=== PATIENT | female | born 1945 | race Caucasian/White ===

== ENCOUNTER 2016-11-16 15:11 | Inpatient (IN) | payer MEDICARE, OTHER ==
--- NOTE | ~2016-11-16 | DS ---
Discharge Summary [facility] [address] [place]. [address] NAME: ZONIA VIGIL : 49 STATUS : DIS IN PAT#: [id number] AGE: 71 ADM/REG DATE : 11/16/16 MR#: [id number] REPORT SERV DATE: 12/04/16 DICTATED BY: VIV HENDRICKS DATE: 12/04/16 REPORT STATUS : Draft TRANSCRIBED BY: ANJU DATE: 12/04/16 Data Collection from hospitalization DISCHARGE DIAGNOSES: 1. Acute systolic congestive heart failure. 2. Persistent atrial fibrillation, status post transesophageal echocardiogram/DC cardioversion 11/22/2016. 3. Acute kidney injury. 4. Hypotension. 5. Abnormal overnight pulse oximetry-suspect obstructive sleep apnea. 6. Hypertension. 7. History of seasonal rhinitis. CONSULTATIONS: Jose Lynn M.D. PROCEDURES: 1. Cardiac catheterization, 11/19/2016. 2. Transesophageal echocardiogram guided cardioversion, 11/22/2016. 3. Overnight oximetry study, 11/24/2016. 4. Cardioversion, 11/26/2016. DISCHARGE MEDICATIONS: Tylenol 650 mg at bedtime as needed, Cordarone 200 mg twice a day, Eliquis 5 mg twice a day, Bumex as instructed, Coreg 3.125 mg twice a day, Zyrtec 10 mg every evening, vitamin D 2000 units daily, Flonase nasal spray one spray nasally daily as needed, Centrum one tablet daily, K-Dur 20 mEq as instructed. CONDITION ON DISCHARGE: Stable. DISPOSITION: The patient was discharged home on a low-sodium, low-cholesterol, cardiac diet with activities as instructed. She would follow up with me on 12/06/2016. She would follow up with Dr. Bobby Fonseca 1 week following discharge. She would follow up at [facility] as instructed. HOSPITAL COURSE: This is a 71-year-old female who has no previous cardiovascular history. She reports that she was in her usual state of health until mid August 2016. She had the abrupt onset of upper respiratory tract infection symptoms including sore throat, rhinorrhea, wheezing, and shortness of breath. The patient was diagnosed with bronchitis and apparently treated with antimicrobial therapy. Her symptoms initially improved after 1- 2 weeks, however, shortly thereafter she developed the insidious onset of dyspnea and fatigue. Her symptoms were originally mild although more recently they had become very severe. Over the past week in particular the patient has had significant weight gain, orthopnea, lower extremity edema, and exertional dyspnea. She denied any palpitations aside from an occasional feeling of irregular heartbeat. She denied any chest pain. She was admitted to the hospital at this time for further evaluation and treatment. Upon admission, her INR level was 1.2. Creatinine level was 1.19. Troponin-I was 0.07. The patient has newly diagnosed atrial fibrillation and was started on IV Cardizem drip which was effective in reducing the heart rate. She would be diuresed. We would transition Discharge Summary [address] [place]. [address] NAME: ZONIA VIGIL : 49 STATUS : DIS IN PAT#: [id number] AGE: 71 ADM/REG DATE : 11/16/16 MR#: [id number] REPORT SERV DATE: 12/04/16 DICTATED BY: VIV HENDRICKS DATE: 12/04/16 REPORT STATUS : Draft TRANSCRIBED BY: ANJU DATE: 12/04/16 to beta-ciara therapy when the patient was euvolemic and titrate Cardizem off. The patient does have acute congestive heart failure. The patient's LV systolic function was unknown although her x-ray was suggestive of cardiomyopathy. Transthoracic echocardiogram would be obtained as soon as possible. The patient was going to be started on IV Lasix. We would continue therapy with an angiotensin-receptor ciara though we would discontinue hydrochlorothiazide in preference of a loop diuretic plus or minus at that time. We were going to check TSH and free T4. She would be evaluated for obstructive sleep apnea. When she was euvolemic, a nocturnal pulse oximetry study would be obtained. She was started on IV heparin drip for stroke prophylaxis. She was placed in the Cardiac Telemetry Unit. The following day, an echocardiogram was performed. She was feeling improved. Her shortness of breath and lower extremity edema was improving. Echocardiogram showed left ventricular ejection fraction of 30-35%. Moderate mitral regurgitation and moderate to severe left atrial enlargement. Telemetry revealed atrial fibrillation with heart rate 90-100 beats per minute. IV Lasix continued. It was felt that she would need to undergo a cardiac catheterization. If this was negative, we would plan on DC cardioversion. TSH level was normal. On the , she felt improved. Her cough and dyspnea were better. There was some decrease in the lower extremity edema. Lasix was increased. Potassium supplementation was given. On 11/19/2016, she had no chest pain. She could lie flat. Dyspnea and cough continued to improve with diuresis. She had no palpitations. She remained in atrial fibrillation. She was taken to the [facility] where she underwent the above-mentioned procedure by Dr. Leobardo Salazar. She tolerated this well. There were no complications. She does have nonobstructive coronary artery disease. Following day, she did have a worsening cough that was productive of clear sputum. She was changed from Lasix to Bumex. Carvedilol was increased for improved rate control. On 11/21/2016, she had brisk diuresis overnight. She did have some cramping. The patient does have acute systolic congestive heart failure- nonischemic. Bumex diuresis continued. Plans were being made for DC cardioversion/transesophageal echocardiogram to be performed. Carvedilol and Eliquis were continued. On the , the patient underwent transesophageal echocardiogram-guided cardioversion. This was a successful transesophageal echocardiogram-guided cardioversion from atrial fibrillation to normal sinus rhythm. The patient underwent an overnight oximetry study. Dr. Jose Lynn interpreted this study as being abnormal while on room air. He recommended consideration of oxygen titration study or sleep study and clinical correlation was recommended. The next day, the patient did complain of symptomatic hypotension. She continued to diurese. Telemetry revealed atrial fibrillation with heart rate in the 100-110 beats per minute range. Her lower extremity edema was resolving and was 1+. Carvedilol was decreased as well as losartan. The patient has failed DC cardioversion. Coumadin was continued. Consideration would be given for repeat DC cardioversion. Eliquis was continued. Coreg was decreased as well as losartan. On 11/24/2016, atrial fibrillation persisted. She had no edema. The next day, she did have some hypotension. She remained in atrial fibrillation. Plans were being made for repeat DC cardioversion. On 11/26/2016, the patient underwent successful cardioversion to a sinus rhythm by Dr. Ng. She had no chest pain or shortness of breath. She was alert and cooperative. She had no focal deficits. Discharge instructions were given. Due to her improved and stable condition, she was discharged home with the above-stated instructions. Information collected by: Ammy Martinez Discharge Summary [place] [address] [place] [address] NAME: ZONIA VIGIL : 49 STATUS : DIS IN PAT#: [id number] AGE: 71 ADM/REG DATE : 11/16/16 MR#: [id number] REPORT SERV DATE: 12/04/16 DICTATED BY: VIV HENDRICKS DATE: 12/04/16 REPORT STATUS : Draft TRANSCRIBED BY: ANJU DATE: 12/04/16 I submit the above information as my discharge summary. TG/ANJU Viv Hendricks MD / [id number] CC: MD Bobby Bone MD
--- NOTE | ~2016-11-16 | HP ---
History And Physical [place] [id number] [place]. [address] NAME: ZONIA VIGIL : 49 STATUS : ADM IN [facility]#: [id number] AGE: 71 ADM/REG DATE : 11/16/16 MR#: [id number] REPORT SERV DATE: 11/16/16 DICTATED BY: VIV HENDRICKS DATE: 11/16/16 REPORT STATUS : Draft TRANSCRIBED BY: MODJunito DATE: 11/16/16 DATE OF ADMISSION: 11/16/2016 CARDIOLOGY ADMISSION HISTORY AND PHYSICAL. IDENTIFYING DATA: The patient is a 71-year-old woman with no previous cardiovascular history. CHIEF COMPLAINT: Extreme fatigue and dyspnea of insidious onset approximately 2 to 3 months ago. HISTORY OF PRESENT ILLNESS: Ms. Vigil is a 71-year-old woman with no previous cardiovascular history. She reports that she was in her usual state of health until mid August 2016. The patient had the abrupt onset of upper respiratory tract infection symptoms including sore throat, rhinorrhea, wheezing, and shortness of breath. The patient was diagnosed with bronchitis, and apparently treated with antimicrobial therapy. Her symptoms initially improved after 1 to 2 weeks. However, the patient shortly thereafter developed insidious onset of dyspnea and fatigue. Her symptoms were originally mild, though more recently they have become very severe. Over the last week in particular, the patient has had significant weight gain, orthopnea, lower extremity edema, and exertional dyspnea. She denies palpitations, aside from occasional feeling of irregular heartbeat. She denies chest pain. PAST MEDICAL HISTORY: 1. Hypertension. 2. Seasonal rhinitis. SURGICAL HISTORY: The patient has had a previous cholecystectomy and appendectomy. Surgical history is otherwise negative. FAMILY HISTORY: The patient reports that her brother has been diagnosed with atrial fibrillation. Her mother has been diagnosed with aortic valve stenosis. The patient denies any significant family history of early coronary heart disease or sudden cardiac . SOCIAL HISTORY: The patient has no significant history of tobacco, alcohol, or drug use. ALLERGIES: THE PATIENT HAS NO KNOWN MEDICATION ALLERGIES, THOUGH SHE DOES REPORT SIGNIFICANT SEASONAL ALLERGIES. HOME MEDICATIONS: 1. Acetaminophen 650 mg p.o. at bedtime as needed. 2. Norvasc 10 mg p.o. at bedtime. 3. Aspirin 81 mg p.o. daily. 4. Cetirizine 10 mg p.o. at bedtime. 5. Cholecalciferol 2000 units p.o. daily. 6. Flonase nasal spray, 1 spray to each nostril daily as needed. History And Physical [address] [place]. [address] NAME: ZONIA VIGIL : 49 STATUS : ADM IN [facility]#: [id number] AGE: 71 ADM/REG DATE : 11/16/16 MR#: [id number] REPORT SERV DATE: 11/16/16 DICTATED BY: VIV HENDRICKS DATE: 11/16/16 REPORT STATUS : Draft TRANSCRIBED BY: ANJU DATE: 11/16/16 7. Multivitamin one tablet daily. 8. Avalide 300/12.5 mg one tablet daily. REVIEW OF SYSTEMS: A complete 12-system review was performed. This is noncontributory except for the pertinent positives and negatives noted in the history of present illness above. PHYSICAL EXAMINATION: VITAL SIGNS: Temperature is 98.6 degrees Fahrenheit, blood pressure is currently 116/83 mmHg, heart rate is currently 90 beats per minute and irregular, though the patient's heart rate was 162 beats per minute on admission, respirations 19, oxygen saturation is 94% on a 2 L nasal cannula. GENERAL: Constitutional: The patient is a morbidly obese, older white woman who is in no acute distress. The patient is able to speak in full sentences. EYES: PERRL, EOMI, clear conjunctiva. HEAD/MNT: NCAT with moist mucous membranes and grossly normal hard and soft palate. NECK: Supple with no obvious thyromegaly or lymphadenopathy CARDIOVASCULAR: There is an irregularly irregular rhythm with a variable S1 and a widely split second heart sound. The jugular venous pressure appears grossly elevated to greater than 14 cm. No significant murmurs or rubs are noted. PULMONARY: There are scattered rales noted in the lung bases bilaterally. The lungs are otherwise clear to auscultation bilaterally with no wheezing or rhonchi noted. ABDOMINAL: Soft, non-tender, non-distended with no hepatosplenomegaly noted. EXTREMITIES: There is 1 to 2+ pitting edema below the knees with mild changes of venous stasis. MUSCULOSKELETAL: Grossly normal strength and range of motion in all extremities INTEGUMENTARY: Skin appears intact with no bruises, wounds or active lesions noted NEURO/PSYC: Alert and oriented x3, with no dysarthria, facial droop or lateralizing weakness noted. DIAGNOSTIC DATA: 12-lead EKG: The 12-lead EKG shows atrial fibrillation with rapid ventricular response and a ventricular rate of 160 beats per minute. There is a right bundle-branch block pattern with secondary ST/T-wave abnormalities. Chest x-ray: The chest x-ray is an AP film, which suggest mild pulmonary edema. The film is suggestive of, but not diagnostic for cardiomegaly. There is no other acute cardiopulmonary process noted, though a small amount of aortic calcification cannot be ruled out. LABORATORY DATA: Cell count show a white blood cell count of 5.2, hemoglobin 14.5, hematocrit 43, platelets 159, INR is 1.2. PTT is 35. Electrolytes show a sodium of 143, potassium 3.5, chloride is 106, CO2 29, BUN 18, creatinine is 1.19, glucose 148, magnesium 1.7. Troponin I is 0.07. Thyroid function studies and B-type natriuretic peptide are pending at this time. ASSESSMENT AND PLAN: 1. Newly diagnosed atrial fibrillation: The patient has been started on IV Cardizem drip, which has been effective in reducing her heart rate. The patient will be diuresed as History And Physical [address] [address] NAME: ZONIA VIGIL : 49 STATUS : ADM IN [facility]#: [id number] AGE: 71 ADM/REG DATE : 11/16/16 MR#: [id number] REPORT SERV DATE: 11/16/16 DICTATED BY: VIV HENDRICKS DATE: 11/16/16 REPORT STATUS : Draft TRANSCRIBED BY: MODJunito DATE: 11/16/16 outlined below. We will transition to beta-ciara therapy when the patient is euvolemic, and titrate Cardizem to off. We will consider discontinue cardioversion depending on the results of the patient's remaining workup. 2. Acute congestive heart failure not otherwise specified: The patient's LV systolic function is unknown, though her x-ray is suggestive of a cardiomyopathy. A transthoracic echocardiogram will be obtained as soon as possible. The patient will be started on Lasix 40 mg IV twice daily as tolerated. We will continue therapy with an angiotensin receptor ciara, though we will discontinue hydrochlorothiazide and preference for a loop diuretic plus or minus Aldactone. 3. For thyroid disorders: We will send a TSH and free T4. 4. Evaluate for obstructive sleep apnea: When the patient is euvolemic, a nocturnal pulse oximetry study will be obtained. Further recommendations pending the results of the patient's echocardiogram. The patient will be started on IV heparin drip for stroke prophylaxis. She will be admitted to Cardiac telemetry Unit. ARIN/ANJU Viv Hendricks MD / [id number] CC: MD Bobby Bone MD
--- NOTE | ~2016-11-16 | PUL ---
[place] [address] [place]. [address] NAME: ZONIA VIGIL : 49 STATUS : DIS IN PAT#: [id number] AGE: 71 ADM/REG DATE : 11/16/16 MR#: [id number] REPORT SERV DATE: 11/27/16 DICTATED BY: JOSE LYNN DATE: 11/24/16 REPORT STATUS : Draft TRANSCRIBED BY: ANJU DATE: 11/24/16 REFERRING PHYSICIAN: Overnight oximetry was performed on room air. Total valid sampling time was 6 hours, 10 minutes and 38 seconds. Saturations were less than 88% for 2 hours 59 minutes. INTERPRETATION: Abnormal oximetry test while on room air. Consider oxygen titration study or sleep study. Clinical correlation is recommended. AISHA/ANJU Jose Lynn M.D. / [id number] CC: MD Bobby Bone MD
--- NOTE | ~2016-11-16 | OP ---
Record Of Operation [facility] [address] [place]. [address] NAME: ZONIA VIGIL : 49 STATUS : DIS IN PAT#: [id number] AGE: 71 ADM/REG DATE : 11/16/16 MR#: [id number] REPORT SERV DATE: 11/26/16 DICTATED BY: WICHO MULLINS DATE: 11/26/16 REPORT STATUS : Draft TRANSCRIBED BY: MODL DATE: 11/26/16 DATE OF PROCEDURE: 11/26/2016 CARDIOVERSION REPORT INDICATIONS: This is a 71-year-old female with recurrent atrial fibrillation and rapid ventricular response. SUMMARY OF THE REPORT: Cardioversion only was performed, please see the NOEMI and cardioversion report from the 11/22/2016 where no left atrial appendage thrombus was identified. The patient has been on therapeutic anticoagulation with Eliquis. Informed consent was obtained signed on the chart prior to proceeding. A time-out was performed and sedation was per Anesthesia. After adequate sedation, a single synchronized 200 joule biphasic energy shock was delivered with successful cardioversion to sinus rhythm. COMPLICATIONS: None. CONCLUSION: Successful cardioversion to sinus rhythm. SITA/ANJU Wicho Mullins M.D. / [id number] CC: MD Bobby Bone MD
--- NOTE | ~2016-11-16 | OP ---
Record Of Operation [facility] [address] [place]. [address] NAME: ZONIA VIGIL : 49 STATUS : ADM IN PAT#: [id number] AGE: 71 ADM/REG DATE : 11/16/16 MR#: [id number] REPORT SERV DATE: 11/22/16 DICTATED BY: NOEMY ROBERTO DATE: 11/22/16 REPORT STATUS : Draft TRANSCRIBED BY: ANJU DATE: 11/22/16 DATE OF PROCEDURE: NOEMI-GUIDED CARDIOVERSION This is a 71-year-old female with cardiomyopathy, congestive heart failure and atrial fibrillation of unknown duration. She has been few days ago started on Eliquis. I have been asked to do a NOEMI-guided cardioversion. The risks and benefits explained to the patient and she agreed to proceed. The patient was sedated with propofol per Anesthesia. Vital signs were closely monitored and remained stable. FINDINGS: 1. No evidence of left atrial or left atrial appendage thrombus. 2. 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 It is very proximal on the septum and it is possible ASD primum. No previous study available for comparison. 3. Mild to moderate RV enlargement with severe decrease in systolic function. Estimated ejection fraction of 30%. 4. Mild RV enlargement with decreased systolic function. 5. Mitral valve opens adequately. There is some moderate mitral valve regurgitation with central jet. 6. Tricuspid valve opens adequately. There is a mild tricuspid valve regurgitation. 7. Aortic valve is tricuspid without significant regurgitation. 8. Grossly normal pulmonic valve. 9. A 200 joules of synchronized cardioversion was delivered. It has not restored sinus rhythm, thus another shock of synchronized cardioversion with 300 joules synchronized cardioversion. This time restored normal sinus rhythm. The patient recovered well. CONCLUSION: Successful NOEMI-guided cardioversion from atrial fibrillation to normal sinus rhythm. GERSON/ANJU Noemy Roberto M.D. / [id number] CC: MD Bobby Bone MD
[2016-11-16 14:12] LABS: BASOPHILS 0.8 %; BASOPHILS ABSOLUTE 0.04 10/3/uL (0.0-0.16); EOSINOPHILS 0.6 %; EOSINOPHILS ABSOLUTE 0.03 10/3/uL (0.0-0.53); ER CBC TAT 0 Hrs 03 MinsN; HEMATOCRIT 43.2 % (36.0-48.0); HEMOGLOBIN 14.5 g/dL (12.0-16.0); IMMATURE GRANULOCYTES 0.2 %; IMMATURE GRANULOCYTES ABSOLUTE 0.01 10/3/uL (0.0-0.11); LYMPHOCYTES 16.8 %; LYMPHOCYTES ABSOLUTE 0.88 10/3/uL (0.67-4.30); MANUAL DIFF NO %; MEAN CORPUS HGB CONC 33.6 g/dL (32.0-36.0); MEAN CORPUSCULAR HEMOGLOB 31.1 pg (26.0-34.0); MEAN CORPUSCULAR VOLUME 92.7 fL (80-100); MEAN PLATELET VOLUME 11.8 fL (9.2-13.0); MONOCYTES 7.4 %; MONOCYTES ABSOLUTE 0.39 10/3/uL (0.21-1.20); NEUTROPHILS 74.2 %; NEUTROPHILS ABSOLUTE 3.89 10/3/uL (2.02-8.40); PLATELET COUNT 159 10/3/uL (150-400); RBC DISTRIBUTION WIDTH 14.6 % (12.0-16.0); RED CELL COUNT 4.66 10/6/uL (4.0-5.6); WHITE BLOOD CELLS 5.2 10/3/uL (4.5-10.5)
[2016-11-16 14:19] LABS: INTERNATIONAL NORMAL RATI 1.2 UNITS (-); PARTIAL THROMBO TIME 35.3 SEC (22.5-37.2)
[2016-11-16 14:38] LABS: CALCIUM, SERUM 8.7 MG/DL (8.5-10.4); CHLORIDE, SERUM 106 MMOL/L (96-112); CO2 (CARBON DIOXIDE) 29 MMOL/L (24-34); CREATININE 1.19 MG/DL (0.55-1.02); GFR AFRICAN AMERICAN 54 ML/MIN (>=60); GFR NON AFRICAN AMERICAN 47 ML/MIN (>=60); POTASSIUM, SERUM 3.5 MMOL/L (3.5-5.3); SODIUM, SERUM 143 MMOL/L (135-148)
[2016-11-16 14:41] LABS: BUN (BLOOD UREA NITROGEN) 18 MG/DL (6-23); GLUCOSE, SERUM 148 MG/DL (60-99)
[2016-11-16 14:43] LABS: CHEST PAIN PROFILE TAT 0 Hrs 34 Mins; TROPONIN I 0.07 NG/ML (<0.05)
[~2016-11-16 15:11] MED LIST: ASAB PO; AVALIDE PO; CENTRUM PO; FLONASE NAS; NORV10 PO; T PO; VITAMIN D2000 UNIT PO; ZYRTEC ALLGY10 MG PO
[2016-11-16 23:23] LABS: ALBUMIN 3.4 G/DL (3.5-5.0); DIRECT BILIRUBIN 0.3 MG/DL (0.0-0.4); FREE T4 1.48 NG/DL (0.76-1.46); INDIRECT BILIRUBIN(NOT ORDER) 1.1 MG/DL (0.1-0.9); TOTAL BILIRUBIN 1.4 MG/DL (0-1.2); TOTAL PROTEIN 6.7 G/DL (6.0-8.5); ULTRASENSITIVE TSH 2.94 MCIU/ML (0.358-3.740)
[2016-11-16 23:24] LABS: TROPONIN I 0.09 NG/ML (<0.05)
[2016-11-17 06:28] LABS: BASOPHILS 0.7 %; BASOPHILS ABSOLUTE 0.04 10/3/uL (0.0-0.16); EOSINOPHILS ABSOLUTE 0.11 10/3/uL (0.0-0.53); HEMATOCRIT 42.5 % (36.0-48.0); HEMOGLOBIN 14.1 g/dL (12.0-16.0); IMMATURE GRANULOCYTES 0.2 %; IMMATURE GRANULOCYTES ABSOLUTE 0.01 10/3/uL (0.0-0.11); LYMPHOCYTES 20.6 %; LYMPHOCYTES ABSOLUTE 1.16 10/3/uL (0.67-4.30); MANUAL DIFF NO %; MEAN CORPUS HGB CONC 33.2 g/dL (32.0-36.0); MEAN CORPUSCULAR VOLUME 93.4 fL (80-100); MEAN PLATELET VOLUME 12.3 fL (9.2-13.0); MONOCYTES 9.1 %; MONOCYTES ABSOLUTE 0.51 10/3/uL (0.21-1.20); NEUTROPHILS 67.4 %; PLATELET COUNT 154 10/3/uL (150-400); RBC DISTRIBUTION WIDTH 14.8 % (12.0-16.0); RED CELL COUNT 4.55 10/6/uL (4.0-5.6); WHITE BLOOD CELLS 5.6 10/3/uL (4.5-10.5)
[2016-11-17 06:33] LABS: PARTIAL THROMBO TIME 102.2 SEC (22.5-37.2)
[2016-11-17 06:35] LABS: BUN (BLOOD UREA NITROGEN) 18 MG/DL (6-23); CALCIUM, SERUM 8.7 MG/DL (8.5-10.4); CHLORIDE, SERUM 106 MMOL/L (96-112); CO2 (CARBON DIOXIDE) 27 MMOL/L (24-34); CREATININE 0.92 MG/DL (0.55-1.02); GFR AFRICAN AMERICAN 74 ML/MIN (>=60); GFR NON AFRICAN AMERICAN 64 ML/MIN (>=60); POTASSIUM, SERUM 3.3 MMOL/L (3.5-5.3); SODIUM, SERUM 143 MMOL/L (135-148)
[2016-11-17 06:36] LABS: GLUCOSE, SERUM 108 MG/DL (60-99)
[2016-11-18 05:44] LABS: BASOPHILS 0.8 %; BASOPHILS ABSOLUTE 0.04 10/3/uL (0.0-0.16); EOSINOPHILS 3.9 %; HEMATOCRIT 39.9 % (36.0-48.0); HEMOGLOBIN 13.2 g/dL (12.0-16.0); IMMATURE GRANULOCYTES 0.2 %; IMMATURE GRANULOCYTES ABSOLUTE 0.01 10/3/uL (0.0-0.11); LYMPHOCYTES 27.8 %; LYMPHOCYTES ABSOLUTE 1.41 10/3/uL (0.67-4.30); MEAN CORPUS HGB CONC 33.1 g/dL (32.0-36.0); MEAN CORPUSCULAR HEMOGLOB 30.9 pg (26.0-34.0); MEAN CORPUSCULAR VOLUME 93.4 fL (80-100); MEAN PLATELET VOLUME 12.4 fL (9.2-13.0); MONOCYTES 12.2 %; MONOCYTES ABSOLUTE 0.62 10/3/uL (0.21-1.20); NEUTROPHILS 55.1 %; PLATELET COUNT 153 10/3/uL (150-400); RBC DISTRIBUTION WIDTH 14.9 % (12.0-16.0); RED CELL COUNT 4.27 10/6/uL (4.0-5.6); WHITE BLOOD CELLS 5.1 10/3/uL (4.5-10.5)
[2016-11-18 05:45] LABS: MANUAL DIFF NO %
[2016-11-18 05:54] LABS: BUN (BLOOD UREA NITROGEN) 21 MG/DL (6-23); CALCIUM, SERUM 8.3 MG/DL (8.5-10.4); CHLORIDE, SERUM 103 MMOL/L (96-112); CO2 (CARBON DIOXIDE) 29 MMOL/L (24-34); CREATININE 0.93 MG/DL (0.55-1.02); GFR AFRICAN AMERICAN 73 ML/MIN (>=60); GFR NON AFRICAN AMERICAN 63 ML/MIN (>=60); GLUCOSE, SERUM 106 MG/DL (60-99); POTASSIUM, SERUM 3.3 MMOL/L (3.5-5.3); SODIUM, SERUM 142 MMOL/L (135-148)
[2016-11-19 06:50] LABS: BASOPHILS 0.6 %; BASOPHILS ABSOLUTE 0.03 10/3/uL (0.0-0.16); EOSINOPHILS 3.4 %; EOSINOPHILS ABSOLUTE 0.17 10/3/uL (0.0-0.53); HEMATOCRIT 41.3 % (36.0-48.0); HEMOGLOBIN 13.2 g/dL (12.0-16.0); IMMATURE GRANULOCYTES 0.2 %; IMMATURE GRANULOCYTES ABSOLUTE 0.01 10/3/uL (0.0-0.11); LYMPHOCYTES 25.5 %; LYMPHOCYTES ABSOLUTE 1.28 10/3/uL (0.67-4.30); MEAN CORPUSCULAR HEMOGLOB 29.6 pg (26.0-34.0); MEAN CORPUSCULAR VOLUME 92.6 fL (80-100); MEAN PLATELET VOLUME 12.6 fL (9.2-13.0); MONOCYTES 9.2 %; MONOCYTES ABSOLUTE 0.46 10/3/uL (0.21-1.20); NEUTROPHILS 61.1 %; NEUTROPHILS ABSOLUTE 3.07 10/3/uL (2.02-8.40); PLATELET COUNT 144 10/3/uL (150-400); RED CELL COUNT 4.46 10/6/uL (4.0-5.6)
[2016-11-19 06:54] LABS: INTERNATIONAL NORMAL RATI 1.2 UNITS (-); PROTIME (NOT ORD) 15.2 SEC (12.0-14.5)
[2016-11-19 06:56] LABS: MANUAL DIFF NO %
[2016-11-19 06:58] LABS: PARTIAL THROMBO TIME 134.8 SEC (22.5-37.2)
[2016-11-19 07:00] LABS: BUN (BLOOD UREA NITROGEN) 20 MG/DL (6-23); CHLORIDE, SERUM 105 MMOL/L (96-112); CHOL/HDL RATIO(NOT ORDER) 2.1 (0-5); CHOLESTEROL 137 MG/DL (< 200); CO2 (CARBON DIOXIDE) 27 MMOL/L (24-34); CREATININE 0.92 MG/DL (0.55-1.02); GFR AFRICAN AMERICAN 74 ML/MIN (>=60); GFR NON AFRICAN AMERICAN 64 ML/MIN (>=60); GLUCOSE, SERUM 105 MG/DL (60-99); HDL CHOLESTEROL 64 MG/DL (> 49); LDL CHOLESTEROL 61 MG/DL (< 130); NON-HDL CHOLESTEROL 73 MG/DL (< 160); POTASSIUM, SERUM 3.8 MMOL/L (3.5-5.3); SODIUM, SERUM 142 MMOL/L (135-148); TRIGLYCERIDE 62 MG/DL (< 150)
[2016-11-20 05:21] LABS: BASOPHILS 0.4 %; BASOPHILS ABSOLUTE 0.02 10/3/uL (0.0-0.16); EOSINOPHILS 2.3 %; EOSINOPHILS ABSOLUTE 0.12 10/3/uL (0.0-0.53); HEMATOCRIT 41.2 % (36.0-48.0); HEMOGLOBIN 13.5 g/dL (12.0-16.0); IMMATURE GRANULOCYTES 0.2 %; IMMATURE GRANULOCYTES ABSOLUTE 0.01 10/3/uL (0.0-0.11); LYMPHOCYTES 20.6 %; LYMPHOCYTES ABSOLUTE 1.08 10/3/uL (0.67-4.30); MANUAL DIFF NO %; MEAN CORPUS HGB CONC 32.8 g/dL (32.0-36.0); MEAN CORPUSCULAR HEMOGLOB 30.8 pg (26.0-34.0); MEAN CORPUSCULAR VOLUME 94.1 fL (80-100); MEAN PLATELET VOLUME 12.7 fL (9.2-13.0); MONOCYTES 10.1 %; MONOCYTES ABSOLUTE 0.53 10/3/uL (0.21-1.20); NEUTROPHILS 66.4 %; NEUTROPHILS ABSOLUTE 3.49 10/3/uL (2.02-8.40); PLATELET COUNT 150 10/3/uL (150-400); RBC DISTRIBUTION WIDTH 14.6 % (12.0-16.0); RED CELL COUNT 4.38 10/6/uL (4.0-5.6); WHITE BLOOD CELLS 5.3 10/3/uL (4.5-10.5)
[2016-11-20 05:38] LABS: BUN (BLOOD UREA NITROGEN) 20 MG/DL (6-23); CALCIUM, SERUM 8.9 MG/DL (8.5-10.4); CHLORIDE, SERUM 105 MMOL/L (96-112); CO2 (CARBON DIOXIDE) 29 MMOL/L (24-34); CREATININE 0.88 MG/DL (0.55-1.02); GFR AFRICAN AMERICAN 78 ML/MIN (>=60); GFR NON AFRICAN AMERICAN 67 ML/MIN (>=60); GLUCOSE, SERUM 91 MG/DL (60-99); POTASSIUM, SERUM 3.5 MMOL/L (3.5-5.3); SODIUM, SERUM 144 MMOL/L (135-148)
[2016-11-21 06:53] LABS: BASOPHILS 0.4 %; BASOPHILS ABSOLUTE 0.02 10/3/uL (0.0-0.16); EOSINOPHILS 3.1 %; EOSINOPHILS ABSOLUTE 0.16 10/3/uL (0.0-0.53); HEMATOCRIT 44.5 % (36.0-48.0); HEMOGLOBIN 14.6 g/dL (12.0-16.0); IMMATURE GRANULOCYTES 0.2 %; IMMATURE GRANULOCYTES ABSOLUTE 0.01 10/3/uL (0.0-0.11); LYMPHOCYTES 23.4 %; LYMPHOCYTES ABSOLUTE 1.21 10/3/uL (0.67-4.30); MANUAL DIFF NO %; MEAN CORPUS HGB CONC 32.8 g/dL (32.0-36.0); MEAN CORPUSCULAR HEMOGLOB 30.6 pg (26.0-34.0); MEAN CORPUSCULAR VOLUME 93.3 fL (80-100); MEAN PLATELET VOLUME 12.5 fL (9.2-13.0); MONOCYTES ABSOLUTE 0.52 10/3/uL (0.21-1.20); NEUTROPHILS 62.9 %; NEUTROPHILS ABSOLUTE 3.26 10/3/uL (2.02-8.40); PLATELET COUNT 153 10/3/uL (150-400); RBC DISTRIBUTION WIDTH 14.4 % (12.0-16.0); RED CELL COUNT 4.77 10/6/uL (4.0-5.6); WHITE BLOOD CELLS 5.2 10/3/uL (4.5-10.5)
[2016-11-21 07:09] LABS: BUN (BLOOD UREA NITROGEN) 20 MG/DL (6-23); CALCIUM, SERUM 9.2 MG/DL (8.5-10.4); CHLORIDE, SERUM 100 MMOL/L (96-112); CO2 (CARBON DIOXIDE) 30 MMOL/L (24-34); CREATININE 0.94 MG/DL (0.55-1.02); GFR AFRICAN AMERICAN 72 ML/MIN (>=60); GFR NON AFRICAN AMERICAN 62 ML/MIN (>=60); GLUCOSE, SERUM 98 MG/DL (60-99); POTASSIUM, SERUM 3.7 MMOL/L (3.5-5.3); SODIUM, SERUM 142 MMOL/L (135-148)
[2016-11-22 06:46] LABS: BASOPHILS 0.4 %; BASOPHILS ABSOLUTE 0.02 10/3/uL (0.0-0.16); EOSINOPHILS 3.8 %; EOSINOPHILS ABSOLUTE 0.19 10/3/uL (0.0-0.53); HEMATOCRIT 46.6 % (36.0-48.0); HEMOGLOBIN 15.3 g/dL (12.0-16.0); IMMATURE GRANULOCYTES 0.2 %; IMMATURE GRANULOCYTES ABSOLUTE 0.01 10/3/uL (0.0-0.11); LYMPHOCYTES 25.9 %; LYMPHOCYTES ABSOLUTE 1.29 10/3/uL (0.67-4.30); MANUAL DIFF NO %; MEAN CORPUS HGB CONC 32.8 g/dL (32.0-36.0); MEAN CORPUSCULAR HEMOGLOB 30.9 pg (26.0-34.0); MEAN CORPUSCULAR VOLUME 94.1 fL (80-100); MEAN PLATELET VOLUME 12.4 fL (9.2-13.0); NEUTROPHILS 57.7 %; NEUTROPHILS ABSOLUTE 2.88 10/3/uL (2.02-8.40); PLATELET COUNT 139 10/3/uL (150-400); RBC DISTRIBUTION WIDTH 14.4 % (12.0-16.0); RED CELL COUNT 4.95 10/6/uL (4.0-5.6)
[2016-11-22 06:52] LABS: INTERNATIONAL NORMAL RATI 1.5 UNITS (-)
[2016-11-22 06:54] LABS: PROTIME (NOT ORD) 18.1 SEC (12.0-14.5)
[2016-11-22 06:59] LABS: CALCIUM, SERUM 9.1 MG/DL (8.5-10.4); CHLORIDE, SERUM 100 MMOL/L (96-112); CO2 (CARBON DIOXIDE) 30 MMOL/L (24-34); CREATININE 0.93 MG/DL (0.55-1.02); GFR AFRICAN AMERICAN 73 ML/MIN (>=60); GFR NON AFRICAN AMERICAN 63 ML/MIN (>=60); GLUCOSE, SERUM 101 MG/DL (60-99); POTASSIUM, SERUM 3.9 MMOL/L (3.5-5.3); SODIUM, SERUM 141 MMOL/L (135-148)
[2016-11-22 07:00] LABS: BUN (BLOOD UREA NITROGEN) 24 MG/DL (6-23)
[2016-11-24 08:39] LABS: BASOPHILS 0.7 %; BASOPHILS ABSOLUTE 0.04 10/3/uL (0.0-0.16); EOSINOPHILS 2.3 %; EOSINOPHILS ABSOLUTE 0.13 10/3/uL (0.0-0.53); HEMATOCRIT 47.4 % (36.0-48.0); HEMOGLOBIN 15.9 g/dL (12.0-16.0); IMMATURE GRANULOCYTES 0.2 %; IMMATURE GRANULOCYTES ABSOLUTE 0.01 10/3/uL (0.0-0.11); LYMPHOCYTES 24.8 %; LYMPHOCYTES ABSOLUTE 1.43 10/3/uL (0.67-4.30); MEAN CORPUS HGB CONC 33.5 g/dL (32.0-36.0); MEAN CORPUSCULAR HEMOGLOB 30.9 pg (26.0-34.0); MEAN CORPUSCULAR VOLUME 92.2 fL (80-100); MEAN PLATELET VOLUME 12.6 fL (9.2-13.0); MONOCYTES ABSOLUTE 0.75 10/3/uL (0.21-1.20); PLATELET COUNT 166 10/3/uL (150-400); RBC DISTRIBUTION WIDTH 14.2 % (12.0-16.0); RED CELL COUNT 5.14 10/6/uL (4.0-5.6); WHITE BLOOD CELLS 5.8 10/3/uL (4.5-10.5)
[2016-11-24 08:43] LABS: MANUAL DIFF NO %
[2016-11-24 08:44] LABS: CALCIUM, SERUM 9.2 MG/DL (8.5-10.4); CHLORIDE, SERUM 101 MMOL/L (96-112); CO2 (CARBON DIOXIDE) 30 MMOL/L (24-34); CREATININE 1.39 MG/DL (0.55-1.02); GFR AFRICAN AMERICAN 45 ML/MIN (>=60); GFR NON AFRICAN AMERICAN 39 ML/MIN (>=60); GLUCOSE, SERUM 100 MG/DL (60-99); POTASSIUM, SERUM 3.7 MMOL/L (3.5-5.3); SODIUM, SERUM 139 MMOL/L (135-148)
[2016-11-24 08:45] LABS: BUN (BLOOD UREA NITROGEN) 39 MG/DL (6-23)
[2016-11-25 08:27] LABS: BUN (BLOOD UREA NITROGEN) 53 MG/DL (6-23); CHLORIDE, SERUM 101 MMOL/L (96-112); CO2 (CARBON DIOXIDE) 28 MMOL/L (24-34); GFR AFRICAN AMERICAN 31 ML/MIN (>=60); GFR NON AFRICAN AMERICAN 26 ML/MIN (>=60); GLUCOSE, SERUM 95 MG/DL (60-99); SODIUM, SERUM 140 MMOL/L (135-148)
[2016-11-26 05:05] LABS: BASOPHILS 0.6 %; BASOPHILS ABSOLUTE 0.03 10/3/uL (0.0-0.16); EOSINOPHILS 3.4 %; EOSINOPHILS ABSOLUTE 0.18 10/3/uL (0.0-0.53); HEMATOCRIT 43.6 % (36.0-48.0); HEMOGLOBIN 14.5 g/dL (12.0-16.0); IMMATURE GRANULOCYTES 0.2 %; IMMATURE GRANULOCYTES ABSOLUTE 0.01 10/3/uL (0.0-0.11); LYMPHOCYTES 28.9 %; LYMPHOCYTES ABSOLUTE 1.53 10/3/uL (0.67-4.30); MEAN CORPUS HGB CONC 33.3 g/dL (32.0-36.0); MEAN CORPUSCULAR HEMOGLOB 30.7 pg (26.0-34.0); MEAN CORPUSCULAR VOLUME 92.4 fL (80-100); MEAN PLATELET VOLUME 12.5 fL (9.2-13.0); MONOCYTES 13.8 %; MONOCYTES ABSOLUTE 0.73 10/3/uL (0.21-1.20); NEUTROPHILS 53.1 %; NEUTROPHILS ABSOLUTE 2.81 10/3/uL (2.02-8.40); PLATELET COUNT 143 10/3/uL (150-400); RBC DISTRIBUTION WIDTH 14.1 % (12.0-16.0); RED CELL COUNT 4.72 10/6/uL (4.0-5.6); WHITE BLOOD CELLS 5.3 10/3/uL (4.5-10.5)
[2016-11-26 05:11] LABS: MANUAL DIFF NO %
[2016-11-26 05:18] LABS: ALBUMIN 3.3 G/DL (3.5-5.0); BUN (BLOOD UREA NITROGEN) 42 MG/DL (6-23); CHLORIDE, SERUM 102 MMOL/L (96-112); CO2 (CARBON DIOXIDE) 28 MMOL/L (24-34); GFR AFRICAN AMERICAN 44 ML/MIN (>=60); GFR NON AFRICAN AMERICAN 38 ML/MIN (>=60); GLUCOSE, SERUM 88 MG/DL (60-99); PHOSPHORUS, SERUM 3.6 MG/DL (2.5-4.5); POTASSIUM, SERUM 3.7 MMOL/L (3.5-5.3); SODIUM, SERUM 141 MMOL/L (135-148)
[2016-11-26] MEDS ORDERED: ELIQUIS 5 MG TAB5 MG PO (18:30)
[2016-11-26] MEDS ORDERED: CORDARONE PO (18:32)
[2016-11-26] MEDS ORDERED: COREG3 PO (18:33)
[2016-11-26] MEDS ORDERED: BUM1 (18:35)
[2016-11-26] MEDS ORDERED: KDUR20 PO (18:35)
== END 2016-11-26 19:34 | disposition home or self-care (01) | DRG 286 ==
LOC: ER 15:11 → 5NO 18:47
PROVIDERS: Emergency Medicine; Internal Medicine Cardiovascular Disease; Internal Medicine Clinical Cardiac Electrophysiology; Nurse Practitioner Family
PROC: 4A023N7 Measurement of Cardiac Sampling and Pressure, Left Heart, Percutaneous Approach (ICD-10-PCS; principal; 2016-11-19)
PROC: B2111ZZ Fluoroscopy of Multiple Coronary Arteries using Low Osmolar Contrast (ICD-10-PCS; 2016-11-19)
PROC: B2151ZZ Fluoroscopy of Left Heart using Low Osmolar Contrast (ICD-10-PCS; 2016-11-19)
PROC: B246ZZ4 Ultrasonography of Right and Left Heart, Transesophageal (ICD-10-PCS; 2016-11-22)
PROC: 5A2204Z Restoration of Cardiac Rhythm, Single (ICD-10-PCS; 2016-11-22)
PROC: 5A2204Z Restoration of Cardiac Rhythm, Single (ICD-10-PCS; 2016-11-26)
DX: I48.1 Persistent atrial fibrillation (principal); I50.21 Acute systolic (congestive) heart failure; N17.9 Acute kidney failure, unspecified; I11.0 Hypertensive heart disease with heart failure; E87.6 Hypokalemia; G47.33 Obstructive sleep apnea (adult) (pediatric); Z79.82 Long term (current) use of aspirin
CPT/HCPCS: 71010; 80048; 80061; 80069; 80076; 82803; 82962; 83735; 83880; 84132; 84439; 84443; 84484; 85025; 85347; 85610; 85730; 92960; 93005; 93312; 93320; 93325; 93460; 94762; 96365; 96375; 99152; 99153; 99285; A9270-GY; C1769; C1887; C1894; C8929; J2250; J3010; Q9957; Q9967

== ENCOUNTER 2017-02-07 00:32 | Emergency (ER) | payer MEDICARE, OTHER ==
[2017-02-07 00:26] LABS: BASOPHILS 0.8 %; BASOPHILS ABSOLUTE 0.04 10/3/uL (0.0-0.16); EOSINOPHILS 3.1 %; EOSINOPHILS ABSOLUTE 0.16 10/3/uL (0.0-0.53); ER CBC TAT 0 Hrs 03 Mins; HEMATOCRIT 47.4 % (36.0-48.0); HEMOGLOBIN 16.2 g/dL (12.0-16.0); IMMATURE GRANULOCYTES 0.2 %; IMMATURE GRANULOCYTES ABSOLUTE 0.01 10/3/uL (0.0-0.11); LYMPHOCYTES 26.9 %; LYMPHOCYTES ABSOLUTE 1.37 10/3/uL (0.67-4.30); MEAN CORPUS HGB CONC 34.2 g/dL (32.0-36.0); MEAN CORPUSCULAR HEMOGLOB 31.6 pg (26.0-34.0); MEAN CORPUSCULAR VOLUME 92.4 fL (80-100); MEAN PLATELET VOLUME 12.2 fL (9.2-13.0); MONOCYTES 10.4 %; MONOCYTES ABSOLUTE 0.53 10/3/uL (0.21-1.20); NEUTROPHILS 58.6 %; NEUTROPHILS ABSOLUTE 2.98 10/3/uL (2.02-8.40); PLATELET COUNT 144 10/3/uL (150-400); RBC DISTRIBUTION WIDTH 14.1 % (12.0-16.0); RED CELL COUNT 5.13 10/6/uL (4.0-5.6); WHITE BLOOD CELLS 5.1 10/3/uL (4.5-10.5)
[2017-02-07 00:29] LABS: BUN (BLOOD UREA NITROGEN) 25 MG/DL (6-23); CALCIUM, SERUM 9.1 MG/DL (8.5-10.4); CHEST PAIN PROFILE TAT 0 Hrs 00 Mins; CHLORIDE, SERUM 104 MMOL/L (96-112); CO2 (CARBON DIOXIDE) 37 MMOL/L (24-34); GFR AFRICAN AMERICAN 41 ML/MIN (>=60); GFR NON AFRICAN AMERICAN 35 ML/MIN (>=60); POTASSIUM, SERUM 3.8 MMOL/L (3.5-5.3); SODIUM, SERUM 144 MMOL/L (135-148); TROPONIN I <0.02 NG/ML (<0.05)
[2017-02-07 00:29] LABS: MANUAL DIFF NO %
[2017-02-07 00:30] LABS: GLUCOSE, SERUM 114 MG/DL (60-99)
[~2017-02-07 00:32] MED LIST changes: +BUM1; +CORDARONE PO; +COREG3 PO; +ELIQUIS 5 MG TAB5 MG PO; +KDUR20 PO
[2017-02-07 01:16] LABS: INTERNATIONAL NORMAL RATI 1.1 UNITS (-); PARTIAL THROMBO TIME 40.2 SEC (22.5-37.2); PROTIME (NOT ORD) 13.8 SEC (12.0-14.5)
== END 2017-02-07 01:57 | disposition home or self-care (01) ==
LOC: ER 00:32
PROVIDERS: Emergency Medicine
DX: I13.0 Hypertensive heart and chronic kidney disease with heart failure and stage 1 through stage 4 chronic kidney disease, or unspecified chronic kidney disease (principal); I50.9 Heart failure, unspecified; N18.9 Chronic kidney disease, unspecified; Z79.899 Other long term (current) drug therapy
CPT/HCPCS: 80048; 83735; 84484; 85025; 85610; 85730; 96374; 99284; J0360